=== PATIENT | male | born 1950 | race Caucasian/White ===

== ENCOUNTER 2023-05-20 06:00 | Day surgery (SDC) | payer OTHER ==
[2023-05-20] MEDS ORDERED: NEURONTIN300 MG PO (11:41)
[2023-05-20] MEDS ORDERED: PERCOCET 5-3251 EACH PO (11:41)
[2023-05-20] MEDS ORDERED: POLY119PG PO (11:41)
== END 2023-05-20 13:35 | disposition home or self-care (01) ==
LOC: CIR.AMB 06:00
PROVIDERS: ATTEND Surgery
DX: K40.90 Unilateral inguinal hernia, without obstruction or gangrene, not specified as recurrent (principal); Z20.822 Contact with and (suspected) exposure to COVID-19
CPT/HCPCS: 49650; C1781